=== PATIENT | male | born 1975 | race Caucasian/White ===

== ENCOUNTER 2019-02-13 12:00 | Outpatient (CLI) | payer OTHER, BC, SELFPAY | END 2019-02-13 12:01 | disposition home or self-care (01) | LOC: SLEEP 02-14 15:38 | PROVIDERS: Family Provider Nurse Practitioner Family; Visit Provider Internal Medicine | DX: G47.33 Obstructive sleep apnea (adult) (pediatric) (principal) | CPT/HCPCS: G0399 ==

== ENCOUNTER 2020-03-05 09:32 | Outpatient (CLI) | payer OTHER, SELFPAY ==
--- NOTE | 2020-03-05 09:38 | XR_ITS ---
WS: [id number] CHEST 2 VIEWS HISTORY: DYSPNEA COMPARISON: None available. Lungs: Continued peripheral patchy opacifications in the mid and lower lung [place]. Multi lobar invol vement. No lobar collapse. Cardiac size: Normal. Mediastinum/Aorta: Normal mediastinum. Bones: RIGHT convex curvature thoracic spine. On the lateral projection one of the thoracic bodies at the thoracolumbar junction appears fractured, remote fracture. XR/XR chest 2V* [id number] IMPRESSION: Bilateral peripheral pulmonary opacifications. Consistent with history of Covid . No prior studies to evaluate for improvement.
== END 2020-03-05 09:33 | disposition home or self-care (01) ==
PROVIDERS: PCP Internal Medicine; Visit Provider Nurse Practitioner Family
DX: R06.00 Dyspnea, unspecified (principal)
CPT/HCPCS: 71046

== ENCOUNTER 2020-04-08 06:46 | Outpatient (CLI) | payer OTHER, SELFPAY ==
--- NOTE | 2020-04-08 06:59 | USCV_ITS ---
Kwesi Veelz Age: 44 Gender: M : 1975 Exam Date: 04/08/2020 07:19 Ordering Phys: Juancarlos Mathis NP Technologist: Mick Howard [place] [facility] [place]: DYSPNEA BP: 155 / 83 HR: 69 Rhythm: Sinus Technical Quality: Good MEASUREMENTS (Male / Female) Normal Values 2D ECHO LV Diastolic Diameter PLAX 4.9 cm 4.2 - 5.9 / 3.9 - 5.3 cm LV Systolic Diameter PLAX 3.2 cm IVS Diastolic Thickness 1.3 cm 0.6 - 1.0 / 0.6 - 0.9 cm IVS Systolic Thickness 2.0 cm LVPW Diastolic Thickness 1.2 cm 0.6 - 1.0 / 0.6 - 0.9 cm LVPW Systolic Thickness 2.0 cm LVOT Diameter 2.1 cm LV Ejection Fraction 2D Teich 65.3 % LV Ejection Fraction MOD 2C 61.2 % LV Ejection Fraction 2C AL 58.7 % LA Diameter 2.9 cm LA Width 3.7 cm LA Height 4.6 cm RA Width 3.7 cm RA Height 4.8 cm Aorta at Sinotubular Diameter 3.1 cm M-MODE LV Diastolic Diameter MM 6.2 cm 4.2 - 5.9 / 3.9 - 5.3 cm LV Systolic Diameter MM 4.3 cm LV Ejection Fraction MM Teich 55.8 % IVS Diastolic Thickness MM 1.1 cm 0.6 - 1.0 / 0.6 - 0.9 cm IVS Systolic Thickness MM 1.6 cm LVPW Diastolic Thickness MM 1.1 cm 0.6 - 1.0 / 0.6 - 0.9 cm LVPW Systolic Thickness MM 1.9 cm Aortic Annulus Diameter 3.4 cm LA Ao Ratio MM 1.0 MV E Point Septal Separation 0.7 cm DOPPLER AV Peak Velocity 108.0 cm/s LVOT Peak Velocity 94.0 cm/s AV Area Cont Eq vti 2.5 cm squared AV Area Cont Eq pk 3.1 cm squared MV Area PHT 5.1 cm squared Mitral E to A Ratio 0.8 MV E' Velocity 30.0 cm/s Mitral E to MV E' Ratio 4.5 Mitral E to LV E' Lateral Ratio 3.6 Mitral E to LV E' Septal Ratio 6.1 TR Peak Velocity 77.0 cm/s TR Peak Gradient 2.4 mmHg Right Atrial Pressure 3.0 mmHg Pulmonary Artery Systolic Pressu 5.4 mmHg PV Peak Velocity 63.0 cm/s RV Acceleration Time 0.1 s RV Ejection Time 0.3 s RV AcT/ET 0.4 FINDINGS Left Ventricle Mild diffuse hypokinesia of the septum and inferolateral wall segments. Overall ejection fraction around 50%.Grade I/IV diastolic dysfunction (abnormal relaxation filling pattern), normal to mildly elevated filling pressures. Right Ventricle The right ventricle is normal in size and function. Right Atrium The right atrium is normal in size. Left Atrium The left atrium is normal in size. Mitral Valve Structurally normal mitral valve without significant stenosis or prolapse. There is no mitral regurgitation. Aortic Valve No gross abnormalities noted Tricuspid Valve No gross abnormalities noted . Pulmonic Valve Trace pulmonary valve regurgitation. Pericardium Normal pericardium without effusion. Aorta Normal ascending aorta dimension. CONCLUSIONS Mild diffuse hypokinesia of the septum and inferolateral wall segments. Overall ejection fraction around 50% ( visual). Grade I/IV diastolic dysfunction (abnormal relaxation filling pattern), normal to mildly elevated filling pressures. Trace pulmonary valve regurgitation. There is no pericardial effusion. There are no intracardiac masses. No previous study is available for comparison. Dr Gagan Seaman MD FACC (Electronically Signed) Final Date: 09 April 2020 05:56 S
== END 2020-04-08 06:47 | disposition home or self-care (01) ==
LOC: RAD 06:49
PROVIDERS: PCP Internal Medicine; Visit Provider Nurse Practitioner Family
DX: R06.00 Dyspnea, unspecified (principal); I37.1 Nonrheumatic pulmonary valve insufficiency
CPT/HCPCS: 93306